=== PATIENT | male | born 1965 | race Caucasian/White ===

== ENCOUNTER 2019-12-14 18:19 | Emergency (ER) | payer BC ==
--- NOTE | 2019-12-14 18:21 | ERPHSYRPT ---
- History of Present Illness Time Seen by Provider: 12/14/19 18:20 Source: patient, family Exam Limitations: no limitations Physician History: This is a right-handed 54-year-old male who prior to arrival was trying to pry open plywood pieces. His left hand slipped and was smashed between plywood and degloved the tip of his left index finger. The tissue is smashed between plywood at home. He did not bring the tissue with him. Patient has full function of his left index finger. There is no active bleeding at this time. Patient's tetanus status is up-to-date. Patient states he has no known drug allergies. Timing/Duration: today Quality: painful Severity: moderate Location: hands (Smashed his left index finger) Travel Risk - International Travel Have you traveled outside of the country in past 3 weeks: No - Coronavirus Screening Are you exhibiting any of the following symptoms?: No Close contact with a COVID-19 positive Pt in past 14-21 Days: No - Review of Systems Constitutional: No Symptoms Eyes: No Symptoms Ears, Nose, & Throat: No Symptoms Respiratory: No Symptoms Cardiac: No Symptoms Abdominal/Gastrointestinal: No Symptoms Genitourinary Symptoms: No Symptoms Musculoskeletal: No Symptoms Skin: Other (Degloved tip of left index finger) Neurological: No Symptoms Psychological: No Symptoms Endocrine: No Symptoms Hematologic/Lymphatic: No Symptoms Immunological/Allergic: No Symptoms All Other Systems: Reviewed and Negative - Past Medical History Neurological History: No Pertinent History Cardiac History: No Pertinent History Endocrine Medical History: No Pertinent History Musculoskeletal History: Arthritis - Past Surgical History Past Surgical History: No Neuro Surgical History: No Pertinent History Cardiac: No Pertinent History Respiratory: No Pertinent History Gastrointestinal: No Pertinent History Genitourinary: No Pertinent History Musculoskeletal: No Pertinent History Male Surgical History: No Pertinent History - Social History Smoking Status: Never smoker - Nursing Vital Signs Nursing Vital Signs: Initial Vital Signs Temperature 97.8 F 12/14/19 18:24 Pulse Rate 89 12/14/19 18:24 Respiratory Rate 18 12/14/19 18:24 Blood Pressure 138/79 12/14/19 18:24 O2 Sat by Pulse Oximetry 94 L 12/14/19 18:24 Pain Scale Pain Intensity 7 - Physical Exam General Appearance: no apparent distress, alert, anxiety Eye Exam: PERRL/EOMI, eyes nml inspection Ears, Nose, Throat Exam: normal ENT inspection, moist mucous membranes Neck Exam: normal inspection, non-tender, supple, full range of motion Respiratory Exam: No chest tenderness Gastrointestinal/Abdomen Exam: No tenderness Rectal Exam: not done Back Exam: normal inspection, normal range of motion, No CVA tenderness, No vertebral tenderness Extremity Exam: normal range of motion, pelvis stable, tenderness (Degloved left index finger tip of finger. The nail and the distal soft tissue is no longer present. There is no active bleeding. There is bone present. Patient is neurovascularly intact. 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, normal mood/affect, nml cerebellar function, nml station & gait Skin Exam: other (See above) Lymphatic Exam: No adenopathy SpO2 Interpretation: normal O2 Delivery: Room Air - Course Nursing assessment & vital signs reviewed: Yes Ordered Tests: Active Orders 24 hr Category Date Time Status HAND (MINIMUM 3 VIEWS) Stat Exams 12/14/19 18:42 Taken Medication Summary Discontinued Medications Generic Name Dose Route Start Last Admin Trade Name Megha PRN Reason Stop Dose Admin Ceftriaxone Sodium 1,000 mg 12/14/19 18:41 Rocephin 1000 Mg Inj IM 12/14/19 18:42 STAT ONE Ceftriaxone Sodium Confirm 12/14/19 18:55 Rocephin 1000 Mg Inj Administered 12/14/19 18:56 Dose 1,000 mg .ROUTE .STK-MED ONE Lidocaine HCl Confirm 12/14/19 18:55 Xylocaine 1% Hcl 20 Ml Mdv Administered 12/14/19 18:56 Dose 3 ml .ROUTE .STK-MED ONE Oxycodone/Acetaminophen 1 tab 12/14/19 18:41 Percocet Tablet 5/325mg PO 12/14/19 18:42 STAT STA Oxycodone/Acetaminophen Confirm 12/14/19 18:55 Percocet Tablet 5/325mg Administered 12/14/19 18:56 Dose 1 tab .ROUTE .STK-MED ONE - Progress Progress: improved Progress Note: 12/14/19 19:15 Medical decision making: I contacted hand surgeon Dr. Darío Montalvo out of [facility] in [facility]. I reviewed the patient's history and physical findings. I sent him a photo to his cell phone of the review of his left distal digit after obtaining permission from the patient to do so. Dr. Montalvo states to provide the patient with antibiotics, pain control and to cover the wound with antibiotic ointment and to make sure the bone is also covered and not exposed. He will see the patient tomorrow, 12/15/2019 in his office at 115 tomorrow afternoon. Counseled pt/family regarding: diagnosis, need for follow-up, rad results - Departure Departure Disposition: Home Clinical Impression: Finger fracture, left, Traumatic amputation of fingertip Condition: Stable Critical Care Time: No Referrals: LEIF OZUNA [Primary Care Provider] - Additional Instructions: Keep the dressing secure in place until after evaluated by hand surgeon tomorrow afternoon. Follow-up with Dr. Darío Montalvo at the [facility] medical [place] [address] phone number is [phone]. Your appointment time is at 1:15 PM tomorrow, 12/15/2019. Prescriptions: Oxycodone HCl/Acetaminophen [Percocet 5-325 mg Tablet] 1 each PO Q6H PRN PRN #12 tablet MDD 4 PRN Reason: Pain Cephalexin Mh 500 mg [Keflex 500 mg] 500 mg PO TID #21 capsule
[2019-12-14] MEDS ORDERED: PERCOCET TABLET 5/325MG PO STA ×2 (18:41→19:24)
[2019-12-14] MEDS ORDERED: Rocephin 1000 MG INJ IM ONE (18:41)
[2019-12-14] MEDS ORDERED: PERCOCET TABLET 5/325MG ONE ×2 (18:55→19:26)
[2019-12-14] MEDS ORDERED: XYLOCAINE 1% HCL 20 ML MDV ONE (18:55)
[2019-12-14] MEDS ORDERED: Rocephin 1000 MG INJ ONE (18:55)
[2019-12-14] MEDS ORDERED: SILVADENE 50 GM TP ONE ×2 (19:12→19:25)
[2019-12-14 19:32] VITALS: BP 122/69; PULSE 82; O2SAT 98
--- NOTE | 2019-12-15 08:39 | XRAY ---
Indication: 2nd finger crush injury. Comparison: None 3 view left hand demonstrates 2nd finger tip amputation with underlying mild displaced tuft fracture. No other bony, articular, or soft tissue abnormalities.
== END 2019-12-14 19:40 | disposition home or self-care (01) ==
LOC: ED 18:19
DX: S62.601A Fracture of unspecified phalanx of left index finger, initial encounter for closed fracture (principal); W23.0XXA Caught, crushed, jammed, or pinched between moving objects, initial encounter; Y93.89 Activity, other specified; Y92.009 Unspecified place in unspecified non-institutional (private) residence as the place of occurrence of the external cause; S68.111A Complete traumatic metacarpophalangeal amputation of left index finger, initial encounter
CPT/HCPCS: 73130; 96372; 99284; J0696; A9270-GY

== ENCOUNTER 2022-04-01 05:51 | Day surgery (SDC) | payer BC ==
[2022-04-01] MEDS ORDERED: Lactated Ringers 1,000 ML IV SCH (06:30)
[2022-04-01] MEDS ORDERED: Lactated Ringers 1,000 ML IV ONE (06:42)
[2022-04-01] MEDS ORDERED: Xylocaine-Mpf 2% 5 Ml Vial ONE (07:30)
[2022-04-01] MEDS ORDERED: DIPRIVAN 200 MG/20 ML IV ONE ×2 (07:30→07:42)
[2022-04-01 08:53] LABS: Risk Ratio 5.6
[2022-04-01 08:58] VITALS: BP 114/66; PULSE 77; O2SAT 100
--- NOTE | 2022-04-01 13:12 | OP ---
SURGERY DATE/TIME: 04/01/2022 0729 PREOPERATIVE DIAGNOSIS: Screening exam. POSTOPERATIVE DIAGNOSIS: Small rectal polyps and mild sigmoid diverticulosis. PROCEDURE: Colonoscopy with cold forceps biopsy. SURGEON: Dr. Leon Genao. ANESTHESIA: MAC. Medications given by anesthesia department. HISTORY: The patient is a 56-year-old white male patient presenting now for screening colonoscopy. He was appraised of the risks of the procedure including the risk of perforation, phlebitis, untoward reaction to medication, bleeding and missed lesions. The patient verbalized his understanding and desired to have the procedure performed. DESCRIPTION OF PROCEDURE: The patient was given the medications by the anesthesia department. He had continuous pulse oximetry, ECG monitoring, intermittent blood pressure monitoring and tidal CO2 monitoring during the examination. He was placed in the left lateral decubitus position. A digital rectal examination was performed and revealed normal anal sphincter tone, no masses and normal prostate. The flexible Olympus pediatric colonoscope was used to intubate the rectum. A view of the colon was developed sequentially to the cecum. Upon insertion and withdrawal was noted small rectal polyps. These were biopsied using cold biopsy technique to determine the nature of the lesion. The scope was removed from the patient who tolerated the procedure well and was sent back to OP recovery in good condition. The prep was noted to be fair to good.
== END 2022-04-01 08:55 | disposition home or self-care (01) ==
LOC: SDC 05:51
PROVIDERS: ATTEND Family Medicine
DX: Z12.11 Encounter for screening for malignant neoplasm of colon (principal); K57.30 Diverticulosis of large intestine without perforation or abscess without bleeding; K62.1 Rectal polyp
CPT/HCPCS: 36415; 80061; 83721; 84450; J2704

== ENCOUNTER 2023-12-21 18:44 | Emergency (ER) | payer BC, OTHER ==
--- NOTE | 2023-12-21 19:02 | ERPHSYRPT ---
- History of Present Illness Time Seen by Provider: 12/21/23 19:02 Source: patient Exam Limitations: no limitations Physician History: This is a 58-year-old white male patient of Dr. Genao who takes no medications on a daily basis and he has no known drug allergies and presents with possible insect bite to the inner aspect of his right ankle. Patient was trimming bushes yesterday and then in the evening noticed 2 areas of his right ankle that were red and had what appeared to be "puncture wounds x 2". It hendricks and itches. He has not had a fever. He has been using hydrocortisone topically without benefit. Timing/Duration: yesterday Quality: burning, itchy Severity: mild Location: extremities (Under aspect distal ankle right side) Possible Causes: other (Possible insect bite or scratch from bushes he was trimming) Modifying Factors: Improves With: scratching Associated Symptoms: denies symptoms Allergies/Adverse Reactions: No Known Drug Allergies Allergy (Verified 12/21/23 18:48) Hx Tetanus, Diphtheria Vaccination/Date Given: Yes Hx Influenza Vaccination/Date Given: Yes Hx Pneumococcal Vaccination/Date Given: No Travel Risk - International Travel Have you traveled outside of the country in past 3 weeks: No - Emerging Infectious Disease Are you exhibiting symptoms associated with any current EIDs: No - Review of Systems Constitutional: No Symptoms Eyes: No Symptoms Ears, Nose, & Throat: No Symptoms Respiratory: No Symptoms Cardiac: No Symptoms Abdominal/Gastrointestinal: No Symptoms Genitourinary Symptoms: No Symptoms Musculoskeletal: No Symptoms Skin: Other (Redness around 2 superficial abrasions/puncture wounds inner aspect right ankle) Neurological: No Symptoms Psychological: No Symptoms Endocrine: No Symptoms Hematologic/Lymphatic: No Symptoms Immunological/Allergic: No Symptoms All Other Systems: Reviewed and Negative - Past Medical History Pertinent Past Medical History: No Neurological History: No Pertinent History ENT History: No Pertinent History Cardiac History: No Pertinent History Respiratory History: No Pertinent History Endocrine Medical History: No Pertinent History Musculoskeletal History: Arthritis GI Medical History: No Pertinent History History: No Pertinent History Psycho-Social History: No Pertinent History Male Reproductive Disorders: No Pertinent History - Past Surgical History Past Surgical History: Yes Neuro Surgical History: No Pertinent History Cardiac: No Pertinent History Respiratory: No Pertinent History Gastrointestinal: No Pertinent History Genitourinary: No Pertinent History Musculoskeletal: Other Male Surgical History: No Pertinent History Other Surgical History: R knee 2019, left index finger - Social History Smoking Status: Current every day smoker How long have you smoked: 30yrs Exposure to second hand smoke: No Drug Use: none Patient Lives Alone: No - Nursing Vital Signs Nursing Vital Signs: Initial Vital Signs Temperature 98 F 12/21/23 18:48 Pulse Rate 104 H 12/21/23 18:48 Respiratory Rate 17 12/21/23 18:48 Blood Pressure 134/96 12/21/23 18:48 O2 Sat by Pulse Oximetry 96 12/21/23 18:48 Pain Scale Pain Intensity 4 - Physical Exam General Appearance: no apparent distress, alert Eye Exam: PERRL/EOMI, eyes nml inspection Ears, Nose, Throat Exam: normal ENT inspection, moist mucous membranes Neck Exam: normal inspection, non-tender, supple, full range of motion Respiratory Exam: airway intact, No chest tenderness, No respiratory distress Gastrointestinal/Abdomen Exam: No tenderness Rectal Exam: not done Back Exam: normal inspection, normal range of motion, No CVA tenderness, No vertebral tenderness Extremity Exam: normal range of motion, pelvis stable, tenderness (Redness distal right ankle inner aspect around to abrasion/puncture sites. No indurated tissue. No abscess. 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, normal mood/affect, nml cerebellar function, nml station & gait, sensation nml Skin Exam: other (See above extremity section) Lymphatic Exam: No adenopathy SpO2 Interpretation: normal O2 Delivery: Room Air - Course Nursing assessment & vital signs reviewed: Yes Ordered Tests: Medication Summary Discontinued Medications Generic Name Dose Route Start Last Admin Trade Name Megha PRN Reason Stop Dose Admin Ceftriaxone Sodium 1,000 mg 12/21/23 19:10 Ceftriaxone Sodium 1000 Mg Inj Vial IM 12/21/23 19:11 STAT ONE Trimethoprim/Sulfamethoxazole 1 tab 12/21/23 19:10 Smz/Tmp Ds Tablet 1 Tablet PO 12/21/23 19:11 STAT ONE - Progress Progress: unchanged Progress Note: 12/21/23 19:15 My medical decision making and the assignment of low complexity to this patient's medical issue today is based on review of the patient's past medical history, review the patient's medication list, review of patient drug allergy list, history present illness and physical findings on examination. The workup in this patient does not require any laboratory radiographic studies. Counseled pt/family regarding: diagnosis, need for follow-up Medical Desision Making - Diagnostic Testing Diagnostic test were ordered, analyzed, and reviewed by me: No - Risk of complications The pt has a mod risk of morbidity or mortality based on: Need for prescription drug management - Departure Departure Disposition: Home Clinical Impression: Cellulitis of right ankle Condition: Stable Critical Care Time: No Referrals: LEIF GENAO [Primary Care Provider] - Follow up/PCP as directed Additional Instructions: Keep the wound site clean daily with soap and water. Do not apply ointments lotions or creams to the site. May cover bandage daily after cleansing with a bandage of choice. Take your antibiotics as prescribed. Use Tylenol and ibuprofen for pain control. Call your primary care provider tomorrow, 12/22/2023, to make arrangements for follow-up appointment to be seen in the next 5 to 7 days. May return to the emergency department if symptoms worsen despite antibiotic therapy. Prescriptions: Smz/Tmp Ds Tablet [Bactrim Ds Tablet] 1 udtab PO BID #14 tablet
[2023-12-21 19:04] VITALS: TEMP 98
[2023-12-21] MEDS ORDERED: Rocephin 1000 MG INJ ONE (19:13)
[2023-12-21] MEDS ORDERED: BACTRIM DS TABLET PO ONE (19:13)
[2023-12-21] MEDS: BACTRIM DS TABLET PO ONE (19:16)
[2023-12-21] MEDS: Rocephin 1000 MG INJ IM ONE (19:17)
[2023-12-21 19:22] VITALS: BP 133/82; PULSE 100; RESP 18; O2SAT 97
== END 2023-12-21 19:27 | disposition home or self-care (01) ==
LOC: ED 18:44
DX: L03.115 Cellulitis of right lower limb (principal); Z72.0 Tobacco use
CPT/HCPCS: 96372; 99283; J0696; A9270-GY